=== PATIENT | female | born 1990 | race Caucasian/White ===

== ENCOUNTER 2017-05-10 20:52 | Emergency (ER) | payer OTHER ==
--- NOTE | 2017-05-10 21:01 | PDOC ---
History of Present Illness - General Chief Complaint: Back Pain Stated Complaint: BACK PAIN Time Seen by Provider: 05/10/17 20:58 - History of Present Illness Initial Comments: This otherwise healthy 26-year-old woman presents with her mother with lower back, right buttock and right leg pain. The patient was bowling just prior to presentation when she felt sudden pain in the right lower back. This radiated into the buttock and into the posterior portion of her right leg to the calf. She also has had intermittent numbness in the leg no paresthesias or weakness reported. She has no groin numbness/difficulty with urination or defecation. Patient did not fall and has no previous history of back pain or sciatica. According to her mother, she stretches deeply as she delivers the bowling ball, bending over at the waist and drawing the ball back with her right arm. No other complaints. Patient did not take any medication prior to presenting to the ER. She currently is taking "Midol" for menstrual cramps. No significant past medical history No known ALLERGIES On no daily medications Past History - Past Medical History Allergies/Adverse Reactions: Allergies Allergy/AdvReac Type Severity Reaction Status Date / Time No Known Allergies Allergy Unverified 05/10/17 20:54 Home Medications: Ambulatory Orders Diclofenac Sodium [Voltaren -] 75 mg PO BID PRN #20 tablet. 05/10/17 Tizanidine HCl 2 mg PO TID PRN #10 tablet 05/10/17 Review of Systems - Review of Systems Able to Perform ROS?: Yes Comments:: 12 point review of systems is negative except for what is noted in the history of present illness *Physical Exam - Physical Exam Comments: GENERAL: Young adult female, alert and oriented 3, tearful and in moderate distress secondary to back/posterior right leg pain HEAD: Normal with no signs of trauma. EYES: PERRLA, EOMI, sclera anicteric, conjunctiva clear. ENT: Ears normal, nares patent, oropharynx clear without exudates. Moist mucous membranes. NECK: Normal range of motion, supple without lymphadenopathy, JVD, or masses. LUNGS: Breath sounds equal, clear to auscultation bilaterally. No wheezes, and no crackles. HEART:Regular rate and rhythm, normal S1 and S2 without murmur, rub or gallop. ABDOMEN:.normal bowel sounds No guarding,tenderness or rebound.No masses No distention. EXTREMITIES: Right lower extremity: Mild tenderness mid right buttock; positive straight leg raising pain on the right at 30/negative on left No deficit in fine touch sensation. Motor intact and equal to the left Distal extremity warm and dry with excellent capillary refill Extremity exam otherwise normal NEUROLOGICAL: Cranial nerves II through XII grossly intact. Normal speech. No focal neurological deficits. MUSCULOSKELETAL: Back mild tenderness to palpation right paraspinal area L3-5 ; no CVA tenderness SKIN: Warm, Dry, normal turgor, no rashes or lesions noted. Progress Note - Progress Note Progress Note: Since the patient did not fall or otherwise impact her body, clinical presentation most consistent with soft tissue strain/sprain of the lower back with concurrent sciatic nerve inflammation. No imaging studies will be done at this time. This evaluation and plan was communicated to the patient and her mother ; they understood and agreed to the plan. Toradol 60 mg IM administered for anti-inflammatory and analgesic effects. Prescriptions for diclofenac 75 mg twice a day and tizanidine 2 mg as needed up to 3 times a day for muscle spasms were sent to the patient's pharmacy. She should follow up with her PMD, , in the a.m. She works for her [employer]. She is been advised not to engage in strenuous activity. The next several days. She should return to the emergency room if she has any development of worsening numbness/paresthesias or weakness of the leg. Also, she has any difficulty with urination or groin numbness she should return. *DC/Admit/Observation/Transfer Diagnosis at time of Disposition: Sciatica of right side - Discharge Dispostion Disposition: HOME Condition at time of disposition: Stable - Prescriptions Prescriptions: Diclofenac Sodium [Voltaren -] 75 mg PO BID PRN #20 tablet. PRN Reason: Back Pain Tizanidine HCl 2 mg PO TID PRN #10 tablet PRN Reason: Muscle Spasms - Referrals Referrals: Naman Sands MD [Primary Care Provider] - 2 Days - Patient Instructions Printed Discharge Instructions: DI for Back Pain With Sciatica Additional Instructions: Avoid strenuous activity for the next several days Diclofenac 75 mg twice a day as needed for pain Tizanidine 2 mg up to 3 times a day as needed for muscle spasms Call Dr. Sands in the morning to arrange follow-up within the next 48 hours Return to ER if you have persistent severe pain, increasing numbness or weakness of the right leg - Post Discharge Activity
[2017-05-10 21:02] VITALS: BP 122/64; PULSE 117; TEMP 97.6; BMI 26.4
[2017-05-10] MEDS ORDERED: KETOROLAC TROMETHAMINE 60 MG/2 ML VIAL IM ONE (22:09)
[2017-05-10] MEDS ORDERED: KETOROLAC TROMETHAMINE 60 MG/2 ML VIAL ONE (22:22)
== END 2017-05-10 22:36 | disposition home or self-care (01) ==
LOC: FER 20:52
PROC: 3E0233Z Introduction of Anti-inflammatory into Muscle, Percutaneous Approach (ICD-10-PCS; principal; 2017-05-10)
DX: M54.31 Sciatica, right side (principal)
CPT/HCPCS: 84703; 99282-25

== ENCOUNTER 2017-05-13 10:30 | Emergency (ER) | payer OTHER ==
--- NOTE | 2017-05-13 10:36 | PDOC ---
History of Present Illness - General Chief Complaint: Back Pain Stated Complaint: BACK PAIN AND VOMITING Time Seen by Provider: 05/13/17 10:35 History Source: Patient Exam Limitations: No Limitations - History of Present Illness Initial Comments: 05/13/17 10:36 Ms Barbosa returns to the ER due to her back pain and now vomiting Briefly, she was seen in the ER due to severe back pain and now vomiting Pt state she was seen in the ER 3 days ago, developed lumbar radiculopathy She was ultimately discharged to home on pain medications She took a single dose but states that it did not help, but rather made her feel unwell She has not been able to leave her home since her back pain started - no weakness, no bowel or bladder incontinence Pt was seen by PMD who gave her a cream for her back pain She started vomiting last night Multiple episodes of emesis She was been able to tolerate PO (pizza last night for dinner) No fevers or chills No undercooked meat or shell fish No ill contacts No diarrhea No significant past medical history No known ALLERGIES On no daily medications ROS: GENERAL/CONSTITUTIONAL: No: fever, chills, weakness, loss of appetite. HEAD, EYES, EARS, NOSE AND THROAT: No: change in vision, ear pain, discharge, sore throat, throat swelling. CARDIOVASCULAR: No: chest pain, lightheadedness, palpitations, syncope RESPIRATORY: No: cough, shortness of breath, wheezing, hemoptysis, stridor. GASTROINTESTINAL: No: nausea, vomiting, diarrhea, abdominal cramping, rectal bleeding, constipation. GENITOURINARY: No: dysuria, hematuria, frequency, urgency, flank pain. MUSCULOSKELETAL: No: back pain, neck pain, joint pain, muscle swelling or pain SKIN AND BREASTS: No: lesions, pallor, rash or easy bruising. NEUROLOGIC: No: headache, vertigo, paresthesias, weakness ENDOCRINE: No: unexplained weight gain or loss HEMATOLOGIC/LYMPHATIC: No: anemia, easy bleeding, swelling nodes. PE: GENERAL: Young adult female, alert and oriented 3, tearful and in moderate distress secondary to back/posterior right leg pain HEAD: Normal with no signs of trauma. EYES: PERRLA, EOMI, sclera anicteric, conjunctiva clear. ENT: Ears normal, nares patent, oropharynx clear without exudates. Moist mucous membranes. NECK: Normal range of motion, supple without lymphadenopathy, JVD, or masses. LUNGS: Breath sounds equal, clear to auscultation bilaterally. No wheezes, and no crackles. HEART:Regular rate and rhythm, normal S1 and S2 without murmur, rub or gallop. ABDOMEN:.normal bowel sounds (+)RLQ tenderness, no guarding or rebound EXTREMITIES: Right lower extremity: Mild tenderness mid right buttock; positive straight leg raising pain on the right at 30/negative on left No deficit in fine touch sensation. Motor intact and equal to the left Distal extremity warm and dry with excellent capillary refill Extremity exam otherwise normal NEUROLOGICAL: Cranial nerves II through XII grossly intact. Normal speech. No focal neurological deficits. MUSCULOSKELETAL: Back mild tenderness to palpation right paraspinal area L3-5 ; no CVA tenderness SKIN: Warm, Dry, normal turgor, no rashes or lesions noted. 05/13/17 11:28 05/13/17 11:50 05/13/17 11:59 05/13/17 12:14 Past History - Past Medical History Allergies/Adverse Reactions: Allergies Allergy/AdvReac Type Severity Reaction Status Date / Time No Known Allergies Allergy Verified 05/13/17 10:31 Home Medications: Ambulatory Orders Diclofenac Sodium [Voltaren -] 75 mg PO BID PRN #20 tablet. 05/10/17 Tizanidine HCl 2 mg PO TID PRN #10 tablet 05/10/17 Lidocaine 5% Patch [Lidoderm Patch -] 1 patch TP DAILY PRN #30 patch 05/13/17 Methocarbamol [Robaxin -] 500 mg PO TID PRN #30 tablet 05/13/17 Naproxen Sodium 220 mg PO BID PRN #30 tablet 05/13/17 Ondansetron HCl [Zofran] 4 mg PO BID PRN #20 tablet 05/13/17 traMADol HCL [Ultram] 50 mg PO Q8H PRN #15 tablet MDD 3 05/13/17 COPD: No - Immunization History Immunization Up to Date: Yes - Suicide/Smoking/Psychosocial Hx Smoking History: Unknown if ever smoked Have you smoked in the past 12 months: No Number of Cigarettes Smoked Daily: 0 Hx Alcohol Use: No Drug/Substance Use Hx: No Substance Use Type: None ED Treatment Course - LABORATORY CBC & Chemistry Diagram: 05/13/17 11:28 05/13/17 11:28 Medical Decision Making - Medical Decision Making 05/13/17 10:36 This is a 26-year-old female presenting with what sounds like sciatic pain. She was given pain medications, is currently not improving, as she is no longer taking the pain medications. Patient also has nausea, the etiology of which is unclear to me, but does not seem related to her back pain with the medication she was given. Patient does have some right lower quadrant tenderness. ? Appendicitis. Will do: Labs, UA, CT, Pain medications Anti Emetics Re assess Pt is set to see PMD - Dr Sands in the office for MRI 05/13/17 15:20 Laboratory Tests 05/13/17 05/13/17 05/13/17 11:28 11:28 11:28 WBC 14.9 H Hgb 13.8 Hct 40.3 Plt Count 388 Sodium 137 Potassium 3.8 Chloride 107 Carbon Dioxide 25 BUN 12 Creatinine 1.2 Random Glucose 91 Serum , Qual Negative Urine Nitrite Ur Leukocyte Esterase Urine RBC Urine WBC Ur Epithelial Cells 05/13/17 12:10 WBC Hgb Hct Plt Count Sodium Potassium Chloride Carbon Dioxide BUN Creatinine Random Glucose Serum , Qual Urine Nitrite Negative Ur Leukocyte Esterase Negative Urine RBC 0-3 Urine WBC 0-[address] Ur Epithelial Cells Moderate [address] of the abdomen and pelvis: The liver, spleen, pelvis, kidneys without significant abnormalities. No evidence of intra-abdominal or retroperitoneal lymphadenopathy or fluid collections. No evidence of pneumoperitoneum, bowel obstruction, intra-abdominal abscess. No evidence of acute appendicitis or diverticulitis. No mass. 05/13/17 15:26 Pt has been ambulatory to the bathroom with no difficulty Clinical impression: musculoskeletal back pain, initial presentation Vomiting, initial presentation *DC/Admit/Observation/Transfer Diagnosis at time of Disposition: Sciatica of right side Nausea & vomiting Qualifiers: Vomiting type: unspecified Vomiting Intractability: non-intractable Qualified Code(s): R11.2 - Nausea with vomiting, unspecified - Discharge Dispostion Disposition: HOME Condition at time of disposition: Stable Admit: No - Referrals Referrals: Naman Sands MD [Staff Physician] - - Patient Instructions Printed Discharge Instructions: Low Back Pain, DI for Low Back Pain, DI for Back Pain With Sciatica, DI for Nausea -- Adult Additional Instructions: Ms Barbosa Thanks for coming in to the ER today Please take medications as prescribed If there is a medication that makes you feel dizzy, please either discontinue it or take half of the pill IF you are nauseous, you can take Zofran Monitor for fevers, chills, worsening symptoms Return to the ER for any other concerns or complaints Please follow up with your primary care physician in 2-3 days - Post Discharge Activity
[2017-05-13] MEDS ORDERED: ONDANSETRON 4 MG/2 ML VIAL IVPUSH ONE (10:58)
[2017-05-13] MEDS ORDERED: SODIUM CHLORIDE 1,000 ML IV STA (10:58)
[2017-05-13] MEDS ORDERED: morphine CARPU-JECT 4 MG/1 ML DISP.SYRIN IVPUSH ONE (10:59)
[2017-05-13] MEDS ORDERED: IBUPROFEN 800 MG/8 ML IJ IVPB ONE ×2 (11:00→11:11)
[2017-05-13 11:03] VITALS: TEMP 98; BMI 24.5
[2017-05-13] MEDS ORDERED: morphine SULFATE 4 MG/ML VIAL ONE (11:11)
[2017-05-13] MEDS ORDERED: ONDANSETRON 4 MG/2 ML VIAL ONE (11:11)
[2017-05-13 11:43] LABS: BASO % 1.1 % (0-2.0); EOS % 0.1 % (0-4.5); HEMATOCRIT 40.3 % (32.4-45.2); HEMOGLOBIN 13.8 GM/dl (10.7-15.3); LYMPH % 11.2 % (8-40); MCH 32.2 pg (25.7-33.7); MCHC 34.3 g/dl (32.0-36.0); MEAN CELL VOLUME 93.9 fl (80-96); MEAN PLT VOLUME 8.7 fl (7.5-11.1); MONO % 8.7 % (3.8-10.2); NEUT % 78.9 % (42.8-82.8); PLATELET COUNT 388 K/MM3 (134-434); RBC 4.29 M/mm3 (3.60-5.2); RDW 11.9 % (11.6-15.6); WHITE BLOOD COUNT 14.9 K/mm3 (4.0-10.8)
[2017-05-13 12:03] LABS: ALK PHOS 69 U/L (32-92); ANION GAP 5 (8-16); BILIRUBIN,TOTAL 0.7 mg/dl (0.2-1.0); BLOOD UREA NITROGEN 12 mg/dl (7-18); CALCIUM 9.1 mg/dl (8.4-10.2); CHLORIDE 107 mmol/L (98-107); CO2 25 mmol/L (22-28); CREATININE 1.2 mg/dl (0.6-1.3); GLUCOSE,RANDOM 91 mg/dl (74-106); POTASSIUM 3.8 mmol/L (3.5-5.1); SGOT/AST 25 U/L (10-42); SGPT/ALT 13 U/L (10-40); SODIUM 137 mmol/L (136-145); TOT PROT 7.4 g/dl (6.4-8.3)
[2017-05-13 12:17] LABS: PH,URINE 6.5 (4.5-8); URINE BILIRUBIN Negative (NEGATIVE); URINE GLUCOSE (UA) Negative (NEGATIVE); URINE KETONE Negative (NEGATIVE); URINE LEUK ESTERASE Negative (NEGATIVE); URINE NITRITE Negative (NEGATIVE); URINE UROBILINOGEN 0.2 (0.2-1.0)
[2017-05-13 12:18] LABS: URINE APPEARANCE SL CLOUDY; URINE BLOOD Trace-lysed (NEGATIVE); URINE COLOR YELLOW; URINE PROTEIN 3+ (NEGATIVE)
[2017-05-13 13:09] LABS: EPI CELLS MODERATE /HPF; URINE RBC 0-3 /hpf (0-3); URINE WBC 0-2 (0-5)
[2017-05-13 15:30] VITALS: BP 97/55; PULSE 63
== END 2017-05-13 15:40 | disposition home or self-care (01) ==
LOC: FER 10:30
PROC: 3E033GC Introduction of Other Therapeutic Substance into Peripheral Vein, Percutaneous Approach (ICD-10-PCS; principal; 2017-05-13)
PROC: 3E033NZ Introduction of Analgesics, Hypnotics, Sedatives into Peripheral Vein, Percutaneous Approach (ICD-10-PCS; 2017-05-13)
PROC: 3E0337Z Introduction of Electrolytic and Water Balance Substance into Peripheral Vein, Percutaneous Approach (ICD-10-PCS; 2017-05-13)
DX: M54.31 Sciatica, right side (principal); R11.2 Nausea with vomiting, unspecified
CPT/HCPCS: 36415; 74177-TC; 80053; 81003; 81015; 84703; 85025; 87086; 99284-25; J7030